=== PATIENT | female | born 1995 | race Caucasian/White ===

== ENCOUNTER 2017-10-05 13:30 | Emergency (ER) | payer OTHER | END 2017-10-05 14:41 | disposition home or self-care (01) | LOC: E/R 13:30 | DX: R07.9 Chest pain, unspecified (principal); J45.909 Unspecified asthma, uncomplicated | CPT/HCPCS: 99283; Z7502 ==

== ENCOUNTER 2017-10-28 22:35 | Emergency (ER) | payer SELFPAY, OTHER | END 2017-10-29 04:34 | disposition left against medical advice (07) | LOC: FTE 22:35 → E/R 10-29 04:34 | DX: Z53.21 Procedure and treatment not carried out due to patient leaving prior to being seen by health care provider (principal) ==

== ENCOUNTER 2018-03-23 23:14 | Emergency (ER) | payer OTHER | END 2018-03-24 00:55 | disposition home or self-care (01) | LOC: FTE 23:14 | DX: H66.91 Otitis media, unspecified, right ear (principal); J45.909 Unspecified asthma, uncomplicated | CPT/HCPCS: 99283; Z7502 ==

== ENCOUNTER 2018-08-09 22:51 | Emergency (ER) | payer OTHER | END 2018-08-10 01:56 | disposition home or self-care (01) | LOC: FTE 22:51 | DX: S69.92XA Unspecified injury of left wrist, hand and finger(s), initial encounter (principal); J45.909 Unspecified asthma, uncomplicated; W18.30XA Fall on same level, unspecified, initial encounter; Y92.9 Unspecified place or not applicable | CPT/HCPCS: 29125; 73110-LT; 99283-25 ==

== ENCOUNTER 2019-02-18 00:43 | Emergency (ER) | payer OTHER | END 2019-02-18 02:55 | disposition home or self-care (01) | LOC: FTE 00:43 | DX: J02.8 Acute pharyngitis due to other specified organisms (principal); J45.909 Unspecified asthma, uncomplicated; E11.9 Type 2 diabetes mellitus without complications; B97.89 Other viral agents as the cause of diseases classified elsewhere | CPT/HCPCS: 87880; 99283 ==

== ENCOUNTER 2019-04-24 13:47 | Emergency (ER) | payer OTHER ==
[2019-04-24] MEDS: ONDANSETRON (ODT) 4 MG TAB ODT (16:05)
== END 2019-04-24 16:27 | disposition home or self-care (01) ==
LOC: FTE 13:47
DX: R10.9 Unspecified abdominal pain (principal); R11.2 Nausea with vomiting, unspecified; J45.909 Unspecified asthma, uncomplicated
CPT/HCPCS: 81025; 99283

== ENCOUNTER → 2019-04-30 | Emergency (ER) | payer OTHER ==
[2019-04-30] MEDS: RANITIDINE 150 MG TAB PO (01:37)
[2019-04-30] MEDS: LIDOCAINE/MYLANTA 40 ML BTL PO (01:37)
== END | disposition home or self-care (01) ==
LOC: FTE 00:09
DX: R10.13 Epigastric pain (principal); J45.909 Unspecified asthma, uncomplicated
CPT/HCPCS: 81025; 99282